=== PATIENT | female | born 1950 | race Caucasian/White ===

== ENCOUNTER 2017-04-01 18:22 | Emergency (ER) | payer MEDICARE ==
[2017-04-01] MEDS ORDERED: Morphine INJ* 4 MG/ML 1 ML SYRINGE IV PRN (19:03)
[2017-04-01] MEDS ORDERED: oxyCODONE/Acetamin 5/325 MG* TAB PO ONE ×2 (19:03→21:47)
[2017-04-01] MEDS ORDERED: Acetaminophen TAB* 325 MG PO ONE (19:04)
--- NOTE | 2017-04-01 20:46 | RAD ---
INDICATION: Left wrist and elbow pain after a fall COMPARISON: None. TECHNIQUE: 3 views left wrist and 4 views of the left elbow were obtained.. REPORT: The bones of the elbow are well corticated and appropriately aligned. There is no elbow effusion. There is a comminuted impacted fracture involving the distal left radius. On the lateral view radiograph there is a minimally displaced bony fragment overlying the dorsal distal left radius. The remaining visualized bones are intact and appropriately aligned. IMPRESSION: 1. Comminuted and minimally displaced, impacted fracture of the distal left radius. 2. No radiographically apparent fracture or dislocation involving the left elbow.
--- NOTE | 2017-04-01 21:50 | ED ---
Upper Extremity Pain - HPI Summary HPI Summary: 66 y/o female with PMH of depression, elevated cholesterol with no history of bone injury in past presents after falling this evening, denies dizziness, lightheaded, LOC, states was water on flagstones, slipped and fell, landing backwards, put arm out behind her. + wrist pain, + shoulder pain, + forarm pain L sided. NO other complaints. - History of Current Complaint Chief Complaint: EDExtremityUpper Stated Complaint: FALL ARM INJURY Time Seen by Provider: 04/01/17 18:42 Hx Obtained From: Patient, Family/Programming Intern - Mechanism Of Injury: Fall From A Standing Position Onset/Duration: Started Minutes Ago Timing: Constant Severity Initially: Severe Severity Currently: Moderate - better with leaving hand still Pain Location: Arm, Elbow, Wrist Aggravating Factor(s): Movement, Lifting Alleviating Factor(s): Rest Associated Signs & Symptoms: Positive: Swelling, Bruising - Allergies/Home Medications Allergies/Adverse Reactions: Allergies Allergy/AdvReac Type Severity Reaction Status Date / Time Sulfa Antibiotics Allergy Rash Verified 04/01/17 18:51 PMH/Surg Hx/FS Hx/Imm Hx Previously Healthy: No - depession, elevated chol Endocrine/Hematology History: Denies: Hx Diabetes Cardiovascular History: Denies: Hx Hypertension, Hx Pacemaker/ICD Respiratory History: Denies: Hx Asthma Sensory History: Denies: Hx Hearing Aid Psychiatric History: Denies: Hx Panic Disorder - Surgical History Surgery Procedure, Year, and Place: HERNIA REPAIR, T&A Infectious Disease History: No Infectious Disease History: Denies: Traveled Outside the [place] in Last 30 Days - Social History Alcohol Use: Daily Substance Use Type: Reports: None Smoking Status (MU): Never Smoked Tobacco Review of Systems Constitutional: Negative Eyes: Negative ENT: Negative Cardiovascular: Negative Respiratory: Negative Gastrointestinal: Negative Genitourinary: Negative Positive: Arthralgia, Myalgia, Decreased ROM, Edema Positive: Bruising Neurological: Negative Positive: Anxious All Other Systems Reviewed And Are Negative: Yes Physical Exam Triage Information Reviewed: Yes Vital Signs On Initial Exam: Initial Vitals Temp Pulse Resp BP Pulse Ox 97.5 F 62 18 148/76 100 04/01/17 18:50 04/01/17 18:50 04/01/17 18:50 04/01/17 18:50 04/01/17 18:50 Vital Signs Reviewed: Yes Appearance: Positive: Well-Appearing, No Pain Distress, Well-Nourished Skin: Positive: Warm, Skin Color Reflects Adequate Perfusion Head/Face: Positive: Normal Head/Face Inspection Eyes: Positive: EOMI, CHAD, Conjunctiva Clear ENT: Positive: Hearing grossly normal Neck: Positive: Supple, Nontender, No Lymphadenopathy Cardiovascular: Positive: Pulses are Symmetrical in both Upper and Lower Extremities Abdomen Description: Positive: Nontender, No Organomegaly, Soft Musculoskeletal: Positive: Abnormal @ - left fingers- + flex/ extension, limited severely due to pain. cap refill <2sec all digits. full ROM thumb, fingers, metacar non-tender to touch, ROM of L wrist not attempted due to pain. rad/ ulnar pulses 2+ b/l UEs. full ROM b/l elbow, no swelling, bruising noted. Mild tenderness to deep palpation anterior superior shoulder, decreased ROM of shoulder d/t pain in L wrist L side. full ROM R UE, b/l LEs., Other - neg spine tenderness. Neurological: Positive: Normal, Sensory/Motor Intact, Alert, Oriented to Person Place, Time, CN Intact II-III, Facial Symmetry, Speech Normal Psychiatric: Positive: Normal, Affect/Mood Appropriate AVPU Assessment: Alert - [place] Coma Scale Coma Scale Total: 15 Diagnostics - Vital Signs Vital Signs Temp Pulse Resp BP Pulse Ox 04/01/17 20:56 18 04/01/17 18:57 97.8 F 64 22 148/76 100 04/01/17 18:50 97.5 F 62 18 148/76 100 - Laboratory Lab Statement: Any lab studies that have been ordered have been reviewed, and results considered in the medical decision making process. Course/Dx - Course Course Of Treatment: radiograph- distal radius fracture, impacted, reviewed with DR. Anderson, no manipulation needed, splint placed, patient to follow up with ortho within 5-7 days, pain management controlled. - Diagnoses Differential Diagnosis/HQI/PQRI: Positive: Contusion, Fracture (Open), Fracture (Closed), Hematoma, Strain, Sprain Provider Diagnoses: Distal radial fracture Discharge - Discharge Plan Condition: Stable Disposition: HOME Prescriptions: oxyCODONE TAB* [Roxycodone TAB 5 mg*] 5 mg PO Q6H PRN #15 tab MDD 4 PRN Reason: Pain Patient Education Materials: Oxycodone, Rapid Release (By mouth), Wrist Fracture in Adults (ED), Splint Care (ED), RICE Therapy (ED) Referrals: David Hamilton MD [Primary Care Provider] - Barbara Anderson MD [Medical Doctor] - (04/05 Call for appointment ) Additional Instructions: Motrin for pain control - 400mg -600mg every 6 hours for the next 24 hours - oxycodone 5mg for severe pain- no driving - Do not get splint wet, leave on until see by orthopedics - REturn to ER with numbness, weakness, cool fingers or call for other concerns.
[2017-04-01 22:14] VITALS: BP 145/62
== END 2017-04-01 22:07 | disposition home or self-care (01) ==
LOC: ED 18:22
DX: S52.509A Unspecified fracture of the lower end of unspecified radius, initial encounter for closed fracture (principal); W19.XXXA Unspecified fall, initial encounter; Y93.9 Activity, unspecified; Y92.9 Unspecified place or not applicable
CPT/HCPCS: 96374; 99283; A9270-GY

== ENCOUNTER 2017-04-06 07:19 | Day surgery (SDC) | payer MEDICARE ==
--- NOTE | 2017-04-05 13:40 | HP ---
PREOPERATIVE HISTORY AND PHYSICAL: DATE OF SURGERY/ADMISSION: 04/06/17. DATE OF OFFICE VISIT/ENCOUNTER: 04/05/17. ATTENDING SURGEON: Barbara Anderson MD PROCEDURE: Left wrist open reduction and internal fixation. CHIEF COMPLAINT: Left wrist pain secondary to a fall. HISTORY OF PRESENT ILLNESS: This is a 66-year-old female who sustained injury to her left wrist on 04/02/17, when she slipped on some wet slate in her backyard. She was seen at [facility] Room where x-rays of the left wrist showed a communicated intraarticular fracture, displac ement of the distal radius. She was splinted and referred to Dr. Anderson for further evaluation and tr eatment. She denies any associated numbness or tingling. After review of x-rays and evaluation by Melba Anderson, it is recommended that she undergo a surgical correction of the fracture and she has conse nted to proceed with a left wrist open reduction and internal fixation. PAST MEDICAL HISTORY: 1. High cholesterol. 2. Depression. PAST SURGICAL HISTORY: 1. Tonsillectomy. 2. Hernia repair. MEDICATIONS: 1. Fluoxetine 20 mg daily. 2. Crestor 10 mg daily. 3. Ocuvite. 4. Vitamin D. 5. Valacyclovir p.r.n. ALLERGIES: SULFA and ANTIBIOTICS cause rash, OXYCODONE causes nausea and vomiting. FAMILY MEDICAL HISTORY: Cancer. SOCIAL HISTORY: The patient is retired teacher. She denies tobacco use or recreational drug use. She does use alcohol on a regular occasion, approximately a glass of wine daily. REVIEW OF SYSTEMS: General: Negative for fevers, chills, or night sweats. No known anesthesia pro blems. HEENT: Negative for headache, lightheadedness or syncopal episodes. Integumentary: Negati ve for abrasions, lesions, or open wounds. Cardiothoracic: Negative for hypertension, chest pain, palpitations or edema. Pulmonary: Negative for shortness of breath with exertion, chronic cough, C OPD. GI: Negative for nausea, vomiting, diarrhea, constipation or GERD. : Negative for nocturia , urinary frequency, urgency, history of UTIs or kidney problems. Musculoskeletal: Positive for cu rrent complaint. Negative for chronic or intermittent back pain or history of fractures. Neurologi karina: Positive for depression. Negative for paresthesias, numbness, history of seizure or stroke. E ndocrine: Negative for diabetes or thyroid issues. Hematologic: Negative for easy bruising, anemi a, excessive bleeding or history of DVT. Infectious Disease: Negative for history of MRSA, hepatiti s C and HIV. PHYSICAL EXAMINATION GENERAL: Well-developed, well-nourished, 66-year-old female in no acute distress. VITAL SIGNS: Height 5 feet 7 inches, weight 166 pounds, pulse rate 72, blood pressure 148/80. HEENT: Normocephalic, atraumatic. Pupils are equal, round and reactive to light and accommodation. Extraocular movements are intact. NECK: Supple. No palpable lymph nodes. Throat is clear. CARDIOVASCULAR: Regular rate and rhythm. S1, S2. No murmurs, rubs or gallops. No edema. PULMONARY: Lungs are clear to auscultation bilaterally. No wheezes, rales or rhonchi. ABDOMEN: Positive bowel sounds, soft, nontender. NEUROLOGICAL: Alert and oriented x3. Cranial nerves II through XII are intact. Sensation is intact to light touch. MUSCULOSKELETAL: On exam of the left wrist, there is swelling in the fingers. She has difficulty m aking a full fist because of this. There is a mild swelling around the wrist. Skin is intact. Neur ovascular function is intact. IMAGING STUDIES: X-rays; AP, lateral and oblique of the left wrist shows a comminuted displaced in traarticular fracture of the distal radius. IMPRESSION: Left distal radius fracture. PLAN: The patient is scheduled to undergo a left wrist open reduction and internal fixation with Dr Nicole Anderson on 04/06/17. She will return to the office in 10 to 14 days postop for followup and suture removal. A prescription for [place] was e- scribed to the patient's pharmacy for postoperative pain management. KELLY VIDAL [id number]/[facility] #: [id number]
[~2017-04-06 07:19] MED LIST: Buffered Lidocaine 0.9% SYRIN* 5 ML/SYR SYRINGE INTRADERM ONE; Dexamethasone IV* 4 MG/ML 1 ML (4 MG) IV SLOW PU ONE; Famotidine IV* 10 MG/ML 2 ML (20 mg) IV ONE
[2017-04-06] MEDS ORDERED: Dexamethasone IV* 4 MG/ML 1 ML (4 MG) ONE (07:45)
[2017-04-06] MEDS ORDERED: Famotidine IV* 10 MG/ML 2 ML (20 mg) ONE (07:45)
[2017-04-06] MEDS ORDERED: Buffered Lidocaine 0.9% SYRIN* 5 ML/SYR SYRINGE ONE ×2 (07:46→11:52)
[2017-04-06] MEDS ORDERED: ceFAZolin 2 GM PREMIX(*) 2 GM/50 ML BAG IVPB ONE (08:08)
[2017-04-06] MEDS ORDERED: Lidocaine 1% INJ* 10 MG/ML 30 ML SDV ONE (08:22)
[2017-04-06] MEDS ORDERED: Midazolam* 1 MG/ML 2 ML VIAL (2 MG) ONE (08:23)
[2017-04-06] MEDS ORDERED: KETAMINE HCL* 50 MG/ML 10 ML VIAL ONE (08:23)
[2017-04-06] MEDS ORDERED: Bupivacaine 0.5% SDV PF* 30 ML VIAL ONE (08:25)
[2017-04-06] MEDS ORDERED: Ondansetron INJ* 2 MG/ML VIAL ONE ×2 (08:50→09:24)
[2017-04-06] MEDS ORDERED: Propofol* 10 MG/ML 20 ML BTL IV PUSH ONE (08:50)
[2017-04-06] MEDS ORDERED: Labetalol IV* 5 MG/ML 20 ML VIAL ONE (09:03)
[2017-04-06] MEDS ORDERED: HYDROmorphone* 1 MG/ML 1 ML SYR IV PRN (09:22)
[2017-04-06] MEDS ORDERED: DiMENhydriNATE IV* 50 MG/ML VIAL IV PUSH PRN (09:22)
[2017-04-06] MEDS ORDERED: Ketorolac INJ* 30 MG/ML 1 ML VIAL ONE (09:24)
[2017-04-06] MEDS ORDERED: fentaNYL* 50 MCG/ML 2 ML VIAL (100 MCG VIAL) ONE ×2 (09:29→10:29)
[2017-04-06] MEDS ORDERED: HYDROcodone/ACETAMIN 5-325 MG* 1 TAB ONE (10:15)
[2017-04-06] MEDS: fentaNYL* 50 MCG/ML 2 ML VIAL (100 MCG VIAL) IV PRN ×2 (10:29→10:44)
[2017-04-06 11:25] VITALS: BP 139/64
[2017-04-06] MEDS ORDERED: Tetracaine 0.5% OPTH.SOL 4 ML* 1 DROP BTL ONE (11:52)
[2017-04-06] MEDS ORDERED: Phenylephrine 2.5% OPTH.SOL* 2 ML BTL ONE (11:52)
[2017-04-06] MEDS ORDERED: Lidocaine 1% MPF* 2 ML VIAL ONE (11:52)
[2017-04-06] MEDS ORDERED: Flurbiprofen 0.03% OPTH.SOL* 2.5 ML BTL ONE (11:52)
[2017-04-06] MEDS ORDERED: Neomycin/Polymy/Dex OPHTH.OIN* 3.5 GM ONE (11:52)
[2017-04-06] MEDS ORDERED: Tropicamide 1% OPTH.SOL* BTL ONE (11:52)
[2017-04-06] MEDS ORDERED: Cyclopentolate 1% OPTH.SOL* 2 ML BTL ONE (11:52)
--- NOTE | 2017-04-06 11:53 | OP ---
CC: Dr. Anderson OPERATIVE REPORT: DATE OF OPERATION: 04/06/17 DATE OF : 52 SURGEON: Barbara Anderson MD INVENTORY CONTROL CLERK: KELLY Padilla ANESTHESIA: General. PRE-OP DIAGNOSIS: Comminuted intraarticular fracture of the left distal radius. POST-OP DIAGNOSIS: Comminuted intraarticular fracture of the left distal radius. OPERATIVE PROCEDURE: Open reduction and internal fixation of left distal radius. ESTIMATED BLOOD LOSS: Zero. TOURNIQUET TIME: About 35 minutes. INDICATION FOR PROCEDURE: Brooks is a 66-year-old female who fell on her outstretched left arm inj uring her left wrist. She has a comminuted intraarticular fracture of the distal radius. She prese nts for open reduction and internal fixation. DESCRIPTION OF PROCEDURE: The patient was brought to the operating room, was given a general anesth etic and placed in supine position on the operating table with a tourniquet around her right upper a rm. Skin of the left upper extremity was prepped and draped in usual sterile fashion. The hand and forearm were exsanguinated and tourniquet elevated to 250 mmHg. A longitudinal incision was made a long the FCR tendon sheath and we dissected sharply down through the superficial and deep portion o f the FCR tendon sheath. The FPL muscle was retracted ulnarly and then the pronator quadratus was i ncised and subperiosteally dissected off the distal radius. The fracture fragments were reduced wit h traction and manipulation and then a 5-hole standard plate from the [employer] variable angle plate w as secured with 4 proximal and 6 distal screws. There was a fracture line on the radial aspect that traversed longitudinally along the bone several centimeters proximal to the joint. This was the re ason for using a longer plate. There were several intraarticular fragments dorsally, at least 3 frag ments which were secured with the distal screws. The position of hardware and fracture fragments we re checked on the C-arm in the AP and lateral views and found to be satisfactory. The length of the radius was good, the radial inclination was very good and the dorsal tilt very good. The wound was irrigated. The pronator quadratus was repaired over the plate with 2-0 Polysorb suture. The deep portion of the FCR tendon sheath was repaired with 2-0 Polysorb suture and the skin edges reapproxim ated with 4-0 Nylon suture. The wound was dressed with with Xeroform, 4x4, Webril, and an Bucky wrap with a volar splint in flexion. The patient tolerated the procedure well, was brought to the [facility] room in good condition. [id number]/[facility] #: [id number]
--- NOTE | 2017-04-06 12:19 | OP ---
CC: Dr. Anderson OPERATIVE NOTE: ADDENDUM:* DATE OF OPERATION: DATE OF : 52 SURGEON: Barbara Anderson MD CHARGEMASTER ANALYST: The ophthalmic surgical assistant, Monik Cerrato, was essential for completion of the case. She retracted the radial artery and other soft tissues while the hardware was being placed. [id number]/[facility] #: [id number] MTDD
--- NOTE | 2017-04-07 15:37 | RAD ---
INDICATION: ORIF LEFT wrist. COMPARISON: April 01, 2017 TECHNIQUE: 1 minute 22 seconds fluoroscopy. FINDINGS: Spot images document placement of a volar cortical plate and fixation screws across the impacted distal radius fracture with improved alignment of the distal radioarticular surface. IMPRESSION: Procedural fluoroscopy. CPT II Codes: 6045F
== END 2017-04-06 11:38 | disposition home or self-care (01) ==
LOC: OREAST 07:19
PROVIDERS: ATTEND Orthopaedic Surgery
DX: S52.572A Other intraarticular fracture of lower end of left radius, initial encounter for closed fracture (principal); W01.0XXA Fall on same level from slipping, tripping and stumbling without subsequent striking against object, initial encounter; Y92.017 Garden or yard in single-family (private) house as the place of occurrence of the external cause
CPT/HCPCS: 76000; A9270-GY; C1713; C1776; J0690; J1100; J1885; J2001; J2250; J2405; J2704; J3010

== ENCOUNTER 2018-02-27 11:07 | Emergency (ER) | payer MEDICARE ==
[2018-02-27 12:01] LABS: ABS Basophils 0.1 10^3/ul (0-0.2); ABS Eosinophils 0.1 10^3/ul (0-0.6); ABS Lymphocytes 1.4 10^3/ul (1.0-4.8); ABS Monocytes 1.1 10^3/ul (0-0.8); ABS Neutrophils 6.9 10^3/ul (1.5-7.7); ABS Nucleated RBC 0 10^3/ul; Eosinophil % 1.1 % (0-6); Hematocrit 42 % (35-47); Hemoglobin 14.5 g/dl (12.0-16.0); Lymphocyte % 14.7 % (25-47); Mean Corpuscular HGB Conc 34 g/dl (31-36); Mean Corpuscular Hemoglobin 32 pg (27-31); Mean Corpuscular Volume 92 fL (80-97); Mean Platelet Volume 8.1 um3 (7.4-10.4); Nucleated Red Blood Cells % 0; Platelet Count 256 10^3/ul (150-450); Red Blood Count 4.58 10^6/ul (4.0-5.4); Red Cell Distribution Width 13 % (10.5-15); White Blood Count 9.6 10^3/ul (3.5-10.8)
[2018-02-27] MEDS ORDERED: Ketorolac INJ* 30 MG/ML 1 ML VIAL IV PUSH ONE (12:05)
[2018-02-27 12:18] LABS: EGFR Non-African American 65.1 (>60)
[2018-02-27 13:00] LABS: Urine Appearance Clear; Urine Blood Negative (Negative); Urine Color Yellow; Urine Ketones Negative (Negative); Urine Protein Negative (Negative); Urine Specific Gravity 1.009 (1.010-1.030); Urine Urobilinogen Negative (Negative)
--- NOTE | 2018-02-27 13:15 | RAD ---
INDICATION: Chest pain COMPARISON: None. TECHNIQUE: Single AP portable view of the chest was obtained. FINDINGS: Image quality is compromised due to the relative inferiority of a portable chest x-ray. The heart and mediastinum exhibit normal size and contour. The lungs are grossly clear. There is no evidence of a large pleural effusion. Visualized bones are normal for the patient's age. IMPRESSION: No radiographic evidence for acute cardiopulmonary abnormality on this portable chest x-ray.
[2018-02-27 15:13] VITALS: BP 134/73
--- NOTE | 2018-02-27 16:35 | ED ---
Cale Philip Julia, scribed for Narciso Rodney MD on 02/27/18 at 1152 . HPI Chest Pain - HPI Summary HPI Summary: This patient is a 67 year old F presenting to [facility] with a chief complaint of sudden achy chest pain beginning last night that woke her from her sleep. Pain is 6/10 in severity. Pain is worsened with inspiration and movement. She denies SOB, nausea, and lower extremity pain. - History of Current Complaint Chief Complaint: EDChestPainROMI Time Seen by Provider: 02/27/18 11:41 Hx Obtained From: Patient Onset/Duration: Started Hours Ago Timing: Constant Pain Intensity: 6 Pain Scale Used: 0-10 Numeric Chest Pain Radiates: No Character: Dull/Aching Aggravating Factor(s): Movement, Deep Breaths Alleviating Factor(s): Nothing Associated Signs and Symptoms: Negative: Shortness of Breath, Nausea, Calf Pain/ Swelling - Allergy/Home Medications Allergies/Adverse Reactions: Allergies Allergy/AdvReac Type Severity Reaction Status Date / Time Sulfa (Sulfonamide Allergy Rash Verified 02/27/18 11:38 Antibiotics) Home Medications: Home Medications Biotin 1 mg PO DAILY 02/27/18 [History Confirmed 02/27/18] C,E,Zinc,Copper 11/Klhan7u/Lut [Ocuvite Adult 50 Plus Softgel] 1 each PO DAILY 02/27/18 [History Confirmed 02/27/18] Cholecalciferol TAB* [Vitamin D TAB*] 1,000 unit PO DAILY 02/27/18 [History Confirmed 02/27/18] FLUoxetine CAP* [PROzac CAP*] 20 mg PO DAILY 02/27/18 [History Confirmed ] Multivitamins/Minerals TAB* [Theragran/minerals TAB*] 1 tab PO DAILY 02/27/18 [ History Confirmed 02/27/18] Rosuvastatin (NF) [Crestor (NF)] 10 mg PO DAILY 02/27/18 [History Confirmed 07/07] PMH/Surg Hx/FS Hx/Imm Hx Endocrine/Hematology History: Denies: Hx Diabetes Cardiovascular History: Denies: Hx Hypertension, Hx Pacemaker/ICD Respiratory History: Denies: Hx Asthma GI History: Reports: Hx Gastroesophageal Reflux Disease - takes tums 3-4x's a week Sensory History: Reports: Hx Cataracts - very slight, Hx Contacts or Glasses - reading Denies: Hx Hearing Aid Opthamlomology History: Reports: Hx Cataracts - very slight, Hx Contacts or Glasses - reading Psychiatric History: Reports: Hx Depression - low grade Denies: Hx Panic Disorder - Cancer History Hx Chemotherapy: No Hx Radiation Therapy: No - Surgical History Surgery Procedure, Year, and Place: left inguinal HERNIA REPAIR 1971, T&A 1970- approx. urethra looped up for bladder leakage -3-4 years ago Hx Anesthesia Reactions: No Infectious Disease History: No Infectious Disease History: Denies: Traveled Outside the [place] in Last 30 Days - Family History Known Family History: Positive: Hypertension - Social History Alcohol Use: Daily Substance Use Type: Reports: None Smoking Status (MU): Never Smoked Tobacco Review of Systems Positive: Chest Pain Negative: Shortness Of Breath Negative: Nausea Negative: Myalgia, Edema All Other Systems Reviewed And Are Negative: Yes Physical Exam - Summary Physical Exam Summary: VITAL SIGNS: Reviewed. GENERAL: Patient is a well-developed and nourished female who is lying comfortable in the stretcher. Patient is not in any acute respiratory distress. HEAD AND FACE: No signs of trauma. No ecchymosis, hematomas or skull depressions. No sinus tenderness. EYES: PERRLA, EOMI x 2, No injected conjunctiva, no nystagmus. EARS: Hearing grossly intact. Ear canals and tympanic membranes are within normal limits. MOUTH: Oropharynx within normal limits. NECK: Supple, trachea is midline, no adenopathy, no JVD, no carotid bruit, no c- spine tenderness, neck with full ROM. CHEST: Symmetric, no tenderness at palpation/no reproducible pain LUNGS: Clear to auscultation bilaterally. No wheezing or crackles. CVS: Regular rate and rhythm, S1 and S2 present, no murmurs or gallops appreciated. ABDOMEN: Soft, non-tender. No signs of distention. No rebound no guarding, and no masses palpated. Bowel sounds are normal. EXTREMITIES: FROM in all major joints, no edema, no cyanosis or clubbing. NEURO: Alert and oriented x 3. No acute neurological deficits. Speech is normal and follows commands. SKIN: Dry and warm Triage Information Reviewed: Yes Vital Signs On Initial Exam: Initial Vitals Temp Pulse Resp BP Pulse Ox 98.9 F 78 17 146/76 98 06/10/18 11:35 02/27/18 11:35 02/27/18 11:35 02/27/18 11:35 02/27/18 11:35 Vital Signs Reviewed: Yes Diagnostics - Vital Signs Vital Signs Temp Pulse Resp BP Pulse Ox 02/27/18 11:35 98.9 F 78 17 146/76 98 - Laboratory Lab Results: Lab Results 02/27/18 02/27/18 02/27/18 Range/Units 11:54 11:54 11:54 WBC 9.6 (3.5-10.8) 10^3/ul RBC 4.58 (4.0-5.4) 10^6/ul Hgb 14.5 (12.0-16.0) g/dl Hct 42 (35-47) % MCV 92 (80-97) fL MCH 32 H (27-31) pg MCHC 34 (31-36) g/dl RDW 13 (10.5-15) % Plt Count 256 (150-450) 10^3/ul MPV 8.1 (7.4-10.4) um3 Neut % (Auto) 72.5 (38-83) % Lymph % (Auto) 14.7 L (25-47) % Buchanan % (Auto) 11.1 H (0-7) % Eos % (Auto) 1.1 (0-6) % Baso % (Auto) 0.6 (0-2) % Absolute Neuts (auto) 6.9 (1.5-7.7) 10^3/ul Absolute Lymphs (auto) 1.4 (1.0-4.8) 10^3/ul Absolute Monos (auto) 1.1 H (0-0.8) 10^3/ul Absolute Eos (auto) 0.1 (0-0.6) 10^3/ul Absolute Basos (auto) 0.1 (0-0.2) 10^3/ul Absolute Nucleated RBC 0 10^3/ul Nucleated RBC % 0 Sodium 137 L (139-145) mmol/L Potassium 4.0 (3.5-5.0) mmol/L Chloride 103 (101-111) mmol/L Carbon Dioxide 31 (22-32) mmol/L Anion Gap 3 (2-11) mmol/L BUN 20 (6-24) mg/dL Creatinine 0.87 (0.51-0.95) mg/dL Est GFR ( Amer) 83.8 (>60) Est GFR (Non-Af Amer) 65.1 (>60) BUN/Creatinine Ratio 23.0 H (8-20) Glucose 98 (70-100) mg/dL Calcium 10.5 H (8.6-10.3) mg/dL Magnesium 2.2 (1.9-2.7) mg/dL Total Bilirubin 0.60 (0.2-1.0) mg/dL AST 21 (13-39) U/L ALT 23 (7-52) U/L Alkaline Phosphatase 62 (34-104) U/L Total Creatine Kinase 174 (10-223) U/L CK-MB (CK-2) 3.6 (0.6-6.3) ng/mL Troponin I 0.00 (<0.04) ng/mL B-Natriuretic Peptide 41 ( - 100) pg/mL Total Protein 7.6 (6.4-8.9) g/dL Albumin 4.6 (3.2-5.2) g/dL Globulin 3.0 (2-4) g/dL Albumin/Globulin Ratio 1.5 (1-3) TSH 1.97 (0.34-5.60) mcIU/mL Urine Color Urine Appearance Urine pH (5-9) Ur Specific Lebeau (1.010-1.030) Urine Protein (Negative) Urine Ketones (Negative) Urine Blood (Negative) Urine Nitrate (Negative) Urine Bilirubin (Negative) Urine Urobilinogen (Negative) Ur Leukocyte Esterase (Negative) Urine WBC (Auto) (Absent) Urine RBC (Auto) (Absent) Ur Squamous Epith Cells (Absent) Urine Bacteria (Absent) Urine Glucose (Negative) 02/27/18 02/27/18 Range/Units 12:30 14:30 WBC (3.5-10.8) 10^3/ul RBC (4.0-5.4) 10^6/ul Hgb (12.0-16.0) g/dl Hct (35-47) % MCV (80-97) fL MCH (27-31) pg MCHC (31-36) g/dl RDW (10.5-15) % Plt Count (150-450) 10^3/ul MPV (7.4-10.4) um3 Neut % (Auto) (38-83) % Lymph % (Auto) (25-47) % Buchanan % (Auto) (0-7) % Eos % (Auto) (0-6) % Baso % (Auto) (0-2) % Absolute Neuts (auto) (1.5-7.7) 10^3/ul Absolute Lymphs (auto) (1.0-4.8) 10^3/ul Absolute Monos (auto) (0-0.8) 10^3/ul Absolute Eos (auto) (0-0.6) 10^3/ul Absolute Basos (auto) (0-0.2) 10^3/ul Absolute Nucleated RBC 10^3/ul Nucleated RBC % Sodium (139-145) mmol/L Potassium (3.5-5.0) mmol/L Chloride (101-111) mmol/L Carbon Dioxide (22-32) mmol/L Anion Gap (2-11) mmol/L BUN (6-24) mg/dL Creatinine (0.51-0.95) mg/dL Est GFR ( Amer) (>60) Est GFR (Non-Af Amer) (>60) BUN/Creatinine Ratio (8-20) Glucose (70-100) mg/dL Calcium (8.6-10.3) mg/dL Magnesium (1.9-2.7) mg/dL Total Bilirubin (0.2-1.0) mg/dL AST (13-39) U/L ALT (7-52) U/L Alkaline Phosphatase (34-104) U/L Total Creatine Kinase (10-223) U/L CK-MB (CK-2) (0.6-6.3) ng/mL Troponin I 0.00 (<0.04) ng/mL B-Natriuretic Peptide ( - 100) pg/mL Total Protein (6.4-8.9) g/dL Albumin (3.2-5.2) g/dL Globulin (2-4) g/dL Albumin/Globulin Ratio (1-3) TSH (0.34-5.60) mcIU/mL Urine Color Yellow Urine Appearance Clear Urine pH 7.0 (5-9) Ur Specific Lebeau 1.009 L (1.010-1.030) Urine Protein Negative (Negative) Urine Ketones Negative (Negative) Urine Blood Negative (Negative) Urine Nitrate Negative (Negative) Urine Bilirubin Negative (Negative) Urine Urobilinogen Negative (Negative) Ur Leukocyte Esterase 1+ A (Negative) Urine WBC (Auto) Trace(0-5/hpf) (Absent) Urine RBC (Auto) Trace(0-2/hpf) (Absent) Ur Squamous Epith Cells Present A (Absent) Urine Bacteria Absent (Absent) Urine Glucose Negative (Negative) Result Diagrams: 02/27/18 11:54 02/27/18 11:54 Lab Statement: Any lab studies that have been ordered have been reviewed, and results considered in the medical decision making process. - Radiology CXR Radiology Interpretation Completed By: Radiologist - No radiographic evidence for acute cardiopulmonary abnormality on this portable chest x-ray. ED Physician has reviewed this report. - EKG 1153 Cardiac Rate: NL EKG Rhythm: Sinus Rhythm - 71 BPM EKG Interpretation: no ST elevation, Q wave in III Chest Pain Course/Dx - Course Assessment/Plan: Initially the patient was placed on a retail special event associate, IV access was obtained, and the patient was started and an IV fluids. She was given Toradol for pain. Blood test results without any significant abnormality except sodium 137, calcium 10.5, troponin 4 hours apart as 0.00. EKG: Normal sinus rhythm at without any ST elevations. Chest x-ray impression: No acute Pulmonary disease. In the ED course the patient feels better. I discussed all the findings and test results with the patient. Patient was instructed to return to the emergency room immediately if any of the symptoms return or worsens. Plan of care was discussed with the patient and understands and agrees. All questions were answered at patient satisfaction. There were no further complaints or concerns. Lung exam before discharge: CTA B/L. Good air exchange. No wheezing or crackles heard. CVS: S1 and S2 present. No murmurs appreciated. Patient is alert and oriented x 3. Patient is hemodynamically stable. Patient will be discharged home with follow up PCP in the next 2-3 days - Diagnoses Provider Diagnoses: Chest pain Discharge - Sign-Out/Discharge Documenting (check all that apply): Discharge/Admit/Transfer - Discharge Plan Condition: Stable Disposition: HOME Patient Education Materials: Chest Pain (ED) Referrals: Christiano Mooney NP [Primary Care Provider] - 2 Days Additional Instructions: RETURN TO THE EMERGENCY DEPARTMENT FOR ANY WORSENING OR NEW SYMPTOMS. - Billing Disposition and Condition Condition: STABLE Disposition: Home The documentation as recorded by the Cale lloyd Julia accurately reflects the service I personally performed and the decisions made by , Narciso Rodney MD.
== END 2018-02-27 15:15 | disposition home or self-care (01) ==
LOC: ED 11:07
DX: R07.9 Chest pain, unspecified (principal); F32.9 Major depressive disorder, single episode, unspecified; Z79.899 Other long term (current) drug therapy; Z88.0 Allergy status to penicillin
CPT/HCPCS: 36415; 71045; 80053; 81003; 81015; 82550; 82553; 83735; 83880; 84443; 84484; 85025; 87086; 93005; 96374; 99282; J1885